=== PATIENT | male | born 1990 | race Two or more races ===

== ENCOUNTER 2020-12-11 11:10 | Emergency (ER) | payer OTHER ==
[~2020-12-11] VITALS: Ht 193 cm; Wt 86.2 kg
[2020-12-11] MEDS ORDERED: FLAGYL500MG PO (18:46)
[2020-12-11] MEDS ORDERED: PEPCID AC20 MG PO (18:47)
== END 2020-12-11 21:09 | disposition home or self-care (01) ==
LOC: ER 11:10
DX: K52.9 Noninfective gastroenteritis and colitis, unspecified (principal)